=== PATIENT | female | born 1975 | race Hispanic/Latino ===

== ENCOUNTER 2019-04-10 05:24 | Inpatient (IN) | payer OTHER ==
[2019-04-09 11:45] LABS: BASOPHILS % 0.6 % (0.0-1.0); EOSINOPHILS # (AUTO) 0.1 (0.0-0.4); EOSINOPHILS % 1.9 % (0.0-6.0); HEMATOCRIT 36.4 % (34.2-44.1); LYMPHOCYTES % 32.2 % (18.0-39.1); MEAN CORPUSCULAR HEMOGLOBIN 30.2 pg (28-32); MEAN CORPUSCULAR VOLUME 91.5 fL (81-99); MONOCYTES # (AUTO) 0.4 (0.2-0.8); MONOCYTES % 5.7 % (4.4-11.3); NEUTROPHILS # (AUTO) 3.7 (2.1-6.9); NEUTROPHILS % 59.4 % (38.7-80.0); PLATELET COUNT 296 x10e3/uL (140-360); RED BLOOD COUNT 3.98 x10e6/uL (3.6-5.1); RED CELL DISTRIBUTION WIDTH 12.8 % (11.7-14.4)
[2019-04-09 11:46] LABS: BILIRUBIN,URINE NEGATIVE (NEGATIVE); CLARITY,URINE CLEAR (CLEAR); COLOR,URINE YELLOW (YELLOW); KETONES,URINE NEGATIVE (NEGATIVE); LEUKOCYTE ESTERASE ,URINE NEGATIVE (NEGATIVE); NITRITE,URINE NEGATIVE (NEGATIVE); PROTEIN,URINE DIPSTICK NEGATIVE (NEGATIVE); URINE UROBILINOGEN 0.2 mg/dL (0.2 - 1)
--- NOTE | 2019-04-09 12:14 | Diagnostic Imaging Report ---
EXAMINATION: CHEST 2 VIEWS INDICATION: Pre-operative COMPARISON: None FINDINGS: LINES/TUBES:None LUNGS:The lungs are well-inflated. No focal consolidation or pulmonary edema. PLEURA:No pleural effusion or pneumothorax. MEDIASTINUM:The cardiomediastinal silhouette appears normal in size and shape. BONES/SOFT TISSUES:No acute osseous injury. ABDOMEN:No free air under the diaphragm. IMPRESSION: No focal pneumonia or pulmonary edema. Signed by: Fortino Clifford MD on 04/09/2019 12:11 PM
[2019-04-09 12:16] LABS: ALANINE AMINOTRANSFERASE 9 IU/L (0-55); ALBUMIN 3.8 g/dL (3.5-5.0); ALKALINE PHOSPHATASE 75 IU/L (40-150); BILIRUBIN,DIRECT 0.2 mg/dL (0.0-0.5)
[2019-04-09 14:33] LABS: HIV 1&2 AB SCREEN NON-REACTIVE (NONREACTIVE)
[~2019-04-10] VITALS: Ht 162.6 cm; Wt 102.5 kg
[2019-04-10] VITALS (9 sets, daily range): BP systolic 105–111; BP diastolic 56–73
[~2019-04-10 05:24] MED LIST: VITAMIN D1000 UNI1 PO
--- OUTSIDE RECORDS SUMMARY | 2019-04-10 05:33 | XMS REPORT ---
Author Author [facility] Address Unknown Phone Unavailable Care Team Providers Care Floor Specialist Name Role Phone Alonso VALADEZ Unavailable Unavailable Problems This patient has no known problems. Allergies, Adverse Reactions, Alerts This patient has no known allergies or adverse reactions. Medications This patient has no known medications. Results Test Description Test Time Test Comments Text Results Atomic Results Result Comments CHEST 2 VIEWS 2019-04-09 12:11:00 [place] [address] Patient Name: BIGG CUNNINGHAM MR #: [id number] : 1975 Age/Sex: 44/F Req #: [id number] [facility] Physician: Ordered by: JER VALADEZ MD Report #: [id number] Location: OR Room/Bed: Procedure: [id number] DX/CHEST 2 VIEWS Exam Date: 04/09/19 Exam Time: 1140 REPORT STATUS: Signed EXAMINATION: CHEST 2 VIEWS INDICATION: Pre-operative COMPARISON: None FINDINGS: LINES/TUBES:None LUNGS:The lungs are well-inflated. No focal consolidation or pulmonary edema. PLEURA:No pleural effusion or pneumothorax. MEDIASTINUM:The cardiomediastinal silhouette appears normal in size and shape. BONES/SOFT TISSUES:No acute osseous injury. ABDOMEN:No free air under the diaphragm. IMPRESSION: No focal pneumonia or pulmonary edema. Signed by: Pal Clifford MD on 04/09/2019 12:11 PM Dictated By: PAL CLIFFORD MD 1211 Transcribed By: GUCCI on 04/09/191210 COPY TO: JER VALADEZ MD
[2019-04-10] MEDS ORDERED: CEFOXITIN 2GM/ D5W 50ML 50 ML IV ONE (05:37)
[2019-04-10] MEDS ORDERED: VASOPRESSIN INJ 20 UNIT/ML VIAL ONE (07:22)
[2019-04-10] MEDS ORDERED: HYDROMORPHONE 1MG/1ML INJ ONE ×2 (08:05→10:33)
[2019-04-10] MEDS ORDERED: IBUPROFEN 800MG/ 250ML 250 ML IV ONE (08:06)
[2019-04-10] MEDS ORDERED: BUPIVACAINE LIPOSOME/PF 266 MG/20 ML IJ ONE (09:04)
[2019-04-10] MEDS ORDERED: BUPIVACAINE 0.25%/EPI 30ML SDV INJ ONE (09:22)
[2019-04-10] MEDS ORDERED: FENTANYL CITRATE/PF 100MCG/2 ML INJ ONE ×2 (10:12→19:19)
[2019-04-10] MEDS ORDERED: SIMETHICONE 80 MG CHEW PO PRN (10:15)
[2019-04-10] MEDS ORDERED: DOCUSATE SODIUM 100 MG CAP PO PRN (10:15)
[2019-04-10] MEDS ORDERED: HYDROMORPHONE 0.2MG/ML-SOD CHL 30ML PCA SYRINGE IV ONE (10:23)
[2019-04-10] MEDS ORDERED: DIPHENHYDRAMINE HCL INJ 50 MG/ML VIAL IM PRN (10:30)
[2019-04-10] MEDS ORDERED: ONDANSETRON HCL INJ 2MG/ML 2ML 2 MG/ML VIAL IV PRN (10:30)
[2019-04-10] MEDS ORDERED: NALOXONE HCL INJ 0.4 MG/ML AMP IV PRN (10:30)
[2019-04-10] MEDS: HYDROMORPHONE 0.2MG/ML-SOD CHL 30ML PCA SYRINGE IV PRN ×2 (11:38→20:03)
[2019-04-10] MEDS ORDERED: KETOROLAC TROMETHAMINE 30 MG/ML VIAL IV SCH (12:00)
--- NOTE | 2019-04-10 15:36 | Operative Report ---
DATE OF PROCEDURE: 04/10/2019 SURGEON: Lars Henson MD PREOPERATIVE DIAGNOSES: A 44-year-old white female, 3, para 3, status post bilateral tubal ligations, suffering from heavy painful periods and fibroid uterus. POSTOPERATIVE DIAGNOSES: A 44-year-old white female, 3, para 3, status post bilateral tubal ligations, suffering from heavy painful periods and fibroid uterus. PROCEDURES PERFORMED: 1. Examination under anesthesia. 2. Total abdominal hysterectomy. 3. Bilateral salpingectomy. DYE RANGE FEEDER: Magdiel Mccormick MD. ANESTHESIA: General. ANESTHESIOLOGIST: Dr. Garcia. FINDINGS: At the time of surgery, on EUA, cervix looks hypertrophic. Uterus enlarged up to 12-week size. No adnexal masses felt on laparotomy. Uterus is enlarged, has a fibroid protruding from the lower posterior wall of the uterus. Both tubes looked normal, but have the Falope rings and both ovaries look normal. I removed the uterus and both tubes, and saved both the ovaries. ESTIMATED BLOOD LOSS: Around 100 mL. DRAINS: Duke catheter in the bladder draining clear urine about 150 mL during the surgery. COUNTS: Instrument and swab count correct. PROCEDURE IN DETAIL: The patient was brought to the operating room, put in the supine position, and general anesthesia was given without any problems. After adequate anesthesia, the patient was examined under anesthesia, the findings were as dictated above. Then, she was prepped and draped in the routine fashion and proceeded with the surgery. Duke catheter was in the bladder draining clear urine. I made a low transverse Pfannenstiel skin incision, taken down to the fascia. Fascia was opened in a transverse fashion. Recti muscles were longitudinal, identified the parietal peritoneum, and entered the abdominal cavity without any problems. After entering, we put in the O'Austin-O'Alexis retractor in the abdominal incision for the better exposure and put in the lower blade, and packed the bowels up with the wet laps, and put in the upper blade. Then, fundus of the uterus was held with [place] clamp and visualized the pelvis. There were no pelvic adhesions. No pelvic endometriosis. Uterus was enlarged and fibroid tumor protruding from the lower posterior wall of the uterus. Both the ovaries look fine. The tubes have the fallopian tubes and stuck, maybe causing part of the pain, that is why I planned to remove the both the tubes and the uterus. Then, the bladder flap at the peritoneum was opened in the lower part and extended all the way up to the stumps of the round ligaments and with the use of the LigaSure round ligaments were clamped close to the uterus, cauterized and cut, and the bladder flap extended all the way up to the stumps of the round ligaments, and then dissected the bladder from the cervix and pushed down. Bladder went down very well. Now, with the help of the LigaSure, clamped the ovarian ligament and the tube close to the uterus cornua, clamped, cauterized, and cut with the LigaSure. The same thing done on the other side. Then, we had to take another bite on the broad ligament close to the uterus on either side and that from the uterus. Then, we dissected the posterior peritoneum and pushed it down. Uterine vessels were isolated, clamped close to the uterus with the LigaSure and cauterized twice and cut. Hemostasis was satisfactory. I then dissected the bladder from the lower part of the cervix and pushed it down. Posteriorly, the peritoneum went down very well. Then, cardinal ligaments on either side were clamped with straight Opal clamps, cut toward the uterus and suture ligated with transfixation suture using 1-0 Vicryl. Suture tied, snugged, and cut short. I had to take 2 bites. Then, the uterosacral ligaments on either side were clamped close to the uterus, cut toward the uterus, and suture ligated using 1-0 Vicryl. Suture tied, snugged, and cut short. Anteriorly, the bladder was down and we were all the way up to the tip of the vagina angle. Then, vaginal angles were clamped on either side with the right-angled clamps, cut toward the cervix. We were into the vagina on either side, then cut the anterior vaginal wall and posterior vaginal wall, and removed the uterus along with the cervix and fibroid tumor, and sent for the Pathology. The angles were sutured with 1-0 Vicryl with transfixation sutures. Suture tied, snugged, and held on with a hemostat, and the vaginal vault closed with [id number] sutures using #1 Vicryl. All the sutures were tied, snugged, and cut short, and then checked for the hemostasis. It was satisfactory. After anchoring the stumps of the uterosacral ligaments into the vaginal vault, all the sutures were cut short and I irrigated the pelvis. There was no active bleeding from any pedicles in the pelvis. Hemostasis was good. Then, injected the local about 10 mL into the vaginal vault and then after the irrigation, checked again fro the hemostasis. It was satisfactory. Then, removed all the laps and O'Austin-O'Alexis retractor. The parietal peritoneum was closed with 2-0 Vicryl with continuous stitches, and then, injected the remaining 10 mL of local into the abdominal wall muscle and the fascia. Then, fascia was approximated with #1 Vicryl using 2 sutures starting at the corners and ending in the midline. Irrigated the subcutaneous tissue and approximated with 3-0 Vicryl with continuous stitches and the skin closed with 4-0 Vicryl using subcuticular stitches, then injected the Marcaine 0.25% around the skin incision for the postoperative pain relief. The patient tolerated the procedure well. There were no complications. ADDENDUM: After removing the uterus and closing the vaginal vault, I looked at the tubes. The Falope rings were still in there, probably they may be causing the pain, that is why I removed the tubes. At the base of the tube, mesosalpinx was identified and clamped with the LigaSure, cauterized, and cut. This was done the same thing on both sides and removed both the tubes and sent for the Pathology. This was done after removing the uterus and closing the vaginal vault, then closed the abdominal wall. Estimated blood loss around 100 mL. Urine clear. Duke catheter in the bladder draining the clear urine about 150 mL during the surgery and the patient moved to the recovery room in a stable condition. MD RAYMUNDO Montoya/MODL /[id number]
[2019-04-10] MEDS ORDERED: GLYCOPYRROLATE INJ 1MG/ 5 ML SYR ONE (18:44)
[2019-04-10] MEDS ORDERED: ONDANSETRON HCL INJ 2MG/ML 2ML 2 MG/ML VIAL ONE (18:44)
[2019-04-10] MEDS ORDERED: NEOSTIGMINE 5 MG/5ML SYR ONE (18:44)
[2019-04-10] MEDS ORDERED: ROCURONIUM BROMIDE 10 MG/ML 5ML VIAL ONE (18:44)
[2019-04-10] MEDS ORDERED: PROPOFOL IV EMULSION 10 MG/ML 20 ML VIAL ONE (18:44)
[2019-04-10] MEDS ORDERED: SEVOFLURANE INHAL SOLN 250 ML PEN BTL ONE (18:44)
[2019-04-10] MEDS ORDERED: DEXAMETHASONE SOD PHOS INJ 4 MG/ML VIAL ONE (18:44)
[2019-04-10] MEDS ORDERED: LIDOCAINE HCL 2% LOCAL INJ 5 ML SDV VIAL INJ ONE (18:44)
[2019-04-10] MEDS ORDERED: ACETAMINOPHEN 1000 MG/100 ML IV ONE (18:44)
--- NOTE | 2019-04-10 19:15 | NUR ---
walking rounds done, report received, and [employer] checked. Patient is awake, alert and able to make needs known. Bed in lowest position, locked and call ambrocio within reach. Abdominal incision dressing intact and binder in place.
[2019-04-10] MEDS ORDERED: MIDAZOLAM HCL 2 MG/2 ML VIAL ONE (19:19)
[2019-04-10] MEDS ORDERED: KETAMINE HCL INJ 50 MG/ML 10 ML VIAL ONE (19:19)
[2019-04-10] MEDS: DIPHENHYDRAMINE HCL INJ 50 MG/ML VIAL IV PRN (20:15)
[2019-04-10] MEDS: DEXTROSE 5%/LACTATED RINGERS 1,000 ML IV SCH (20:44)
[2019-04-10] MEDS: KETOROLAC TROMETHAMINE 30 MG/ML VIAL IV PRN (23:52)
[2019-04-10] MEDS: CEFOXITIN 2GM/ D5W 50ML 50 ML IV SCH (23:53)
[2019-04-11] VITALS (7 sets, daily range): BP systolic 96–117; BP diastolic 56–67
[2019-04-11] MEDS: DIPHENHYDRAMINE HCL INJ 50 MG/ML VIAL IV PRN (02:43)
[2019-04-11] MEDS: DEXTROSE 5%/LACTATED RINGERS 1,000 ML IV SCH (03:12)
[2019-04-11] MEDS: CEFOXITIN 2GM/ D5W 50ML 50 ML IV SCH ×2 (05:35→13:05)
[2019-04-11] MEDS: HYDROMORPHONE 0.2MG/ML-SOD CHL 30ML PCA SYRINGE IV PRN (05:36)
[2019-04-11 05:46] LABS: BASOPHILS % 0.2 % (0.0-1.0); EOSINOPHILS % 0.2 % (0.0-6.0); HEMATOCRIT 31.4 % (34.2-44.1); LYMPHOCYTES # (AUTO) 2.9 (1.0-3.2); LYMPHOCYTES % 20.4 % (18.0-39.1); MEAN CORPUSCULAR HEMOGLOBIN 30.2 pg (28-32); MEAN CORPUSCULAR HGB CONC 31.8 g/dL (31-35); MEAN CORPUSCULAR VOLUME 94.9 fL (81-99); MONOCYTES # (AUTO) 0.7 (0.2-0.8); MONOCYTES % 5.1 % (4.4-11.3); NEUTROPHILS # (AUTO) 10.3 (2.1-6.9); NEUTROPHILS % 73.8 % (38.7-80.0); PLATELET COUNT 267 x10e3/uL (140-360); RED BLOOD COUNT 3.31 x10e6/uL (3.6-5.1); RED CELL DISTRIBUTION WIDTH 13.1 % (11.7-14.4)
[2019-04-11 06:10] LABS: ANION GAP 12.8 mmol/L (8-16); BLOOD UREA NITROGEN 10 mg/dL (7-26); BUN/CREATININE RATIO 11 (6-25); CALCIUM 8.2 mg/dL (8.4-10.2); CARBON DIOXIDE 24 mmol/L (22-29); CHLORIDE 100 mmol/L (98-107); CREATININE, SERUM 0.88 mg/dL (0.57-1.11); EST GLOMERULAR FILTRATION RATE > 60 ML/MIN (60-); GLUCOSE 106 mg/dL (74-118); POTASSIUM 3.8 mmol/L (3.5-5.1); SODIUM 133 mmol/L (136-145)
--- NOTE | 2019-04-11 06:31 | NUR ---
Duke cath dc'd, and patient tolerated well.
[2019-04-11] MEDS ORDERED: HYDROCODONE/APAP 5MG-325MG TAB PO PRN (09:45)
[2019-04-11] MEDS ORDERED: IBUPROFEN 400 MG TAB PO PRN (09:45)
[2019-04-11] MEDS: KETOROLAC TROMETHAMINE 30 MG/ML VIAL IV PRN (13:32)
[2019-04-11] MEDS ORDERED: TYLENOL WITH C1 EACH PO (17:47)
[2019-04-11] MEDS ORDERED: MOTRIN200 MG PO (17:48)
[2019-04-11] MEDS ORDERED: COLACE100 MG PO (17:48)
== END 2019-04-11 18:25 | disposition home or self-care (01) | DRG 743 ==
LOC: OR 05:24 → PACU V 10:18 → OBSVTOIN 10:18 → IMCU 11:44 → INTOOBSV 04-11 13:34 → OBSVTOIN 04-11 13:34
PROVIDERS: ADMIT Specialist; ATTEND Specialist
PROC: 0UT70ZZ Resection of Bilateral Fallopian Tubes, Open Approach (ICD-10-PCS; 2019-04-10)
PROC: 0UT20ZZ Resection of Bilateral Ovaries, Open Approach (ICD-10-PCS; 2019-04-10)
PROC: 0UT90ZZ Resection of Uterus, Open Approach (ICD-10-PCS; principal; 2019-04-10 07:43)
DX: D25.9 Leiomyoma of uterus, unspecified (principal); N94.6 Dysmenorrhea, unspecified
CPT/HCPCS: 36415; 71046; 80048; 80076; 81003; 84702; 85025; 86803; 86850; 86900; 87340; 87390; 88307; 93005; G0433; G0435; J0694; J1100; J1170; J1200; J1885; J2001; J2250; J2405; J3010